=== PATIENT | male | born 1955 | race Asian ===

== ENCOUNTER 2019-06-01 15:42 | Emergency (ER) | payer OTHER ==
[2019-06-01 16:20] VITALS: BP 156/83; PULSE 84; TEMP 98.5
--- NOTE | 2019-06-01 16:20 | PDOC ---
Rapid Medical Evaluation Time Seen by Provider: 06/01/19 16:17 Medical Evaluation: 06/01/19 16:17 HPI: COVID-19 CDC guideline data points: The patient is a 63yo M presents with suspected COVID-19 with associated symptoms of fever, dry cough, and sore throat complicated by this/these comorbid ities: HTN. ROS: NEGATIVE: difficulty breathing, shortness of breath, chest pain, lightheadedness, dizziness, nausea, vomiting and diarrhea. Other 12 point ROS reviewed and negative. Exam: General: NAD, Well-Appearing, Awake, Alert Oriented x3. Vital signs stable. ENT: No rhinorrhea or nasal congestion. Neck: FROM, no midline tenderness. Lungs: Clear to auscultation bilaterally without wheezes, rhonchi or rales. Normal excursion. Patient is able to speak in full sentences. Heart: HR-84. Regular rhythm, S1-S2 present, no murmurs rubs or gallops. Abdomen: Non-distended. MSK/Extremities: No decrease ROM, No obvious deformities. No obvious cyanosis noted. Neuro: Normal Gait, Cranial Nerves II through XII Grossly Intact. Skin: No obvious rashes, bruising. Color Normal Appearing. Assessment/Plan: sore throat, subjective fevers Patient has a history of this/these comorbidities: HTN, denies recent travel and known COVID exposure. Patient does not meet testing criteria at this time. ASSESSMENT: Denies recent travel and known Covid exposure. Treatment: rapid strep CXR 06/01/19 17:56 Rapid strep neg. CXR- no active pulmonary disease. discharge Discharge Disposition - Diagnosis Pharyngitis Qualifiers: Pharyngitis/tonsillitis etiology: unspecified etiology Qualified Code(s): J02.9 - Acute pharyngitis, unspecified - Discharge Dispostion Disposition: HOME Condition at time of disposition: Stable Decision to Admit order: No - Referrals Referrals: Celeste Mitchell MD [Primary Care Provider] - - Patient Instructions Printed Discharge Instructions: [facility]-Coronavirus Instructions Additional Instructions: You were seen for your cough and possible Coronavirus (COVID-19) Please call the [facility] testing center to make an appointment at or you can call [facility] at from 8:30 AM to 6 PM; or you can visit the [facility] website: [email or web address] for more information about testing at the [facility]. Take Tylenol 650 mg every 6 hours as needed for fever or pain. You may take Robitussin or other [id number] cough syrup. Follow the dosing instructions on the bottle. Warm tea, honey, and salt water gargles may help your symptoms. Please take precautions and self quarantine for 2 weeks and follow-up with your primary care doctor and the Department of Health. Return to the nearest emergency department for shortness of breath, difficulty breathing, chest pain, or if you have any changes in your symptoms. - Post Discharge Activity
== END 2019-06-01 18:03 | disposition home or self-care (01) ==
LOC: JER 15:42
DX: J02.9 Acute pharyngitis, unspecified (principal)
CPT/HCPCS: 71045-TC-FY; 87070; 87880; 99283-25